=== PATIENT | male | born 1955 | race Caucasian/White ===

== ENCOUNTER → 2018-04-27 | Outpatient (CLI) | payer OTHER ==
[~2018-04-27] MED LIST: ACTOS 45 MG45 M1 PO; ADULT LOW DOSE81 MG PO; ALTACE10 MG PO; ALTACE5 M1 PO; CENTRUM TABLET1 TAB PO; DIURETIC PO; FISH OIL 1,0001 EAC5 PO; GLUCOPHAGE1000 MG PO; JANUVIA25 MG PO; LANTUS100 UNIT/M SUBQ; PAXIL OR; PAXIL20 MG PO; PERCOCET 5-3251 EACH PO; TRICOR OR; TRICOR145 MG PO; VICTOZA0.6 MG/0.1 SUBQ; ZETIA10 MG PO; ZOCOR 10 MG TAB10 MG PO; ZOFRAN ODT4 MG PO; [UNRECOGNIZED DRUG - OTHER] PO
== END ==
LOC: CAT 09:15
DX: Z13.6 Encounter for screening for cardiovascular disorders (principal); I25.10 Atherosclerotic heart disease of native coronary artery without angina pectoris; Z82.49 Family history of ischemic heart disease and other diseases of the circulatory system

== ENCOUNTER → 2018-05-01 | Outpatient (CLI) | payer OTHER ==
--- NOTE | ~2018-05-01 | 2DMMODE ---
[facility] [address] [place] [address] 2 D/M-MODE ECHOCARDIOGRAM Name: DOMOANGLEMIYA JACOBS Room #: REG [facility]#: [id number] Admission: 05/01/18 Attend Phys: Jeff Doll MD Discharge: Date of : 53 Date of Service: 05/01/18 1629 Report #: [id number] THIS REPORT FOR: //name// APPROVED REPORT Study performed: 05/01/2018 13:06:33 EXAM: Comprehensive 2D, Doppler, and color-flow Echocardiogram Patient Location: Out-Patient Status: routine BSA: 2.13 HR: 87 bpm BP: 153/86 mmHg Rhythm: NSR Other Information Study Quality: Good Risk Factors: Cardiac Risk Factors: HTN, Hyperlipidemia, DM Indications Dyspnea 2D Dimensions LVEF(%): 59.53 (>50%) IVSd: 12.58 (7-11mm) LVOT Diam: 20.00 (18-24mm) LVDd: 44.34 mm PWd: 12.58 (7-11mm) Ascending Ao: 30.38 (22-36mm) LVDs: 30.39 (25-40mm) Aortic Root: 27.56 mm LV Single Plane 4CH: 62.30 % LV Single Plane 2CH: 64.54 % Kennedy's LVEF: 63.42 % Biplane EF: 64.8 % Volumes Left Atrial Volume (Systole) Single Plane 4CH: 43.28 mL Single Plane 2CH: 41.18 mL LA ESV Index: 21.00 mL/m2 Aortic Valve AoV Peak Dennis.: 1.54 m/s AO Peak Gr.: 9.47 mmHg LVOT Max P.16 mmHg LVOT Max V: 1.14 m/s [facility] [address] [place] [address] 2 D/M-MODE ECHOCARDIOGRAM Name: LATRICIA OLIVEROS [facility] Room #: [facility]#: [id number] Admission: 05/01/18 Attend Phys: Jeff Doll MD Discharge: Date of : 53 Date of Service: 05/01/18 1629 Report #: [id number] MARVIN Vmax: 2.41 cm2 Mitral Valve E/A Ratio: 1.0 MV Decel. Time: 191.75 ms MV E Max Dennis.: 0.93 m/s MV A Dennis.: 0.93 m/s MV PHT: 55.61 ms IVRT: 64.59 ms TDI E/Lateral E': 11.63 E/Medial E': 13.29 Medial E' Dennis.: 0.07 m/s Lateral E' Dennis.: 0.08 m/s Pulmonary Valve PV Peak Dennis.: 0.99 m/s PV Peak Gr.: 3.94 mmHg Pulmonary Vein P Vein S: 0.58 m/s P Vein A: 0.35 m/s P Vein D: 0.49 m/s P Vein A Dur.: 83.0 msec P Vein S/D Ratio: 1.18 Tricuspid Valve TR Peak Dennis.: 2.51 m/s RAP Estimate: 7.00 mmHg TR Peak Gr.: 25.16 mmHg PA Pressure: 32.00 mmHg Left Ventricle The left ventricle is normal size. There is normal LV segmental wall motion. Mild concentric left ventricular hypertrophy. Left ventricular systolic function is normal. The left ventricular ejection fraction is within the normal range. LVEF is 60-65%. Grade I - abnormal relaxation pattern. Right Ventricle The right ventricle is normal size. The right ventricular systolic function is normal. Atria The left atrium size is normal. The right atrium size is normal. Aortic Valve The aortic valve is normal in structure. No aortic regurgitation is present. There is no [place] [address] 2 D/M-MODE ECHOCARDIOGRAM Name: LATRICIA OLIVEROS Room #: REG [facility]#: [id number] Admission: 05/01/18 Attend Phys: eJff Doll MD Discharge: Date of : 53 Date of Service: 05/01/18 1629 Report #: [id number] Mitral Valve The mitral valve is normal in structure. Trace to mild mitral regurgitation. No evidence of mitral valve stenosis. Tricuspid Valve The tricuspid valve is normal in structure. Trace tricuspid regurgitation. Pulmonary artery pressure is 32 mmHg. Pulmonic Valve The pulmonary valve is normal in structure. There is no pulmonic valvular regurgitation. Great Vessels The aortic root is normal in size. IVC is normal in size and collapses with >50% inspiration. Pericardium There is no pericardial effusion. <Conclusion> Left ventricular systolic function is normal. There is normal LV segmental wall motion. LVEF is 60-65%. Mild diastolic dysfunction. Mild LVH The aortic valve is normal in structure. No aortic regurgitation or stenosis The mitral valve is normal in structure. Trace to mild mitral regurgitation. Trace tricuspid regurgitation. Pulmonary artery pressure is 32 mmHg. There is no pericardial effusion. <ELECTRONICALLY SIGNED> By: Edmundo Man MD, FACC 05/01/18 1629 [id number] 162 Edmundo Man MD, FACC /INF
== END ==
LOC: CV 12:40
DX: R06.00 Dyspnea, unspecified (principal)

== ENCOUNTER → 2018-05-22 | Outpatient (CLI) | payer OTHER ==
--- NOTE | ~2018-05-22 | EXE ---
[facility] [employer] [place] [address] STRESS ECHOCARDIOGRAM Name: DOMOLATRICIA REYNALDO Room #: REG [facility]#: [id number] Admission: 05/22/18 Attend Phys: Jeff Doll MD Discharge: Date of : 53 Date of Service: 05/22/18 1535 Report #: [id number] THIS REPORT FOR: //name// APPROVED REPORT Study performed: 05/22/2018 14:00:19 Exam: Stress Echocardiogram Indication: Dyspnea Patient Location: Echo lab Stress Nurse: Padmaja Brown RN Status: routine Ht: 5 ft 11 in HR: 92 bpm BP: 157/86 mmHg Medical History Medical History: HTN, Diabetes Allergies: No known drug allergies Cardiac Risk Factors: HTN, DM Pretest Chest Pain Characteristics: No chest pain Procedure The patient underwent an Exercise Stress Test using the Seymour Protocol. Blood pressure, heart rate, and EKG were monitored. An Echocardiogram was performed by computer aided design technician in four stages in quad fashion. At peak stress, four selected images were obtained and placed side by side with resting images for comparison. Stress Test Details Stress Test: Exercise stress testing was performed using a Seymour protocol. HR Resting HR: 92 bpm Max Heart Rate (APMHR): 157 bpm Max HR Achieved: 162 bpm Target HR (85% APMHR): 133 bpm % of APMHR: 103 Recovery HR: 112 bpm HR response to stress: Normal HR response to stress BP Resting BP: 157/86 mmHg Max BP: 220/80 mmHg Recovery BP: 174/80 mmHg ECG [facility] [address] [address] STRESS ECHOCARDIOGRAM Name: LATRICIA OLIVEROS Room #: REG [facility]#: [id number] Admission: 05/22/18 Attend Phys: Jeff Doll MD Discharge: Date of : 53 Date of Service: 05/22/18 1535 Report #: [id number] Resting ECG: Sinus Rhythm Stress ECG: Sinus Rhythm, nonspecific ST-T abnormalities ST Change: Non-ischemic Maximum ST Deviation: 0.5 mm Clinical Reason for Termination: Completed protocol Exercise duration: 6 min sec Highest Stage Achieved: Stage 2: 2.5 mph at 12% grade. Exercise capacity: 7.2 METs Pre-Stress Echo The resting Echocardiogram showed normal left ventricular contractility with an estimated Ejection Fraction of about 60-65%. Normal wall motion in all segments on baseline images. Post-Stress Echo The stress Echocardiogram showed normal left ventricular contractility with an estimated Ejection Fraction of about 70%. Normal augmentation of wall motion in all segments on post stress images. Clinical No clinical or ECG evidence for ischemia. Conclusion Clinical Response: Non-ischemic Exercise Capacity: Below Average Stress ECG Response: Non-ischemic Stress Echo Images: Non-ischemic The left ventricle is normal in size and wall thickness in both the rest and stress images. Other Information Study Quality: Good <Conclusion> The left ventricle is normal in size and wall thickness in both the rest and stress images. <ELECTRONICALLY SIGNED> By: Jeff Doll MD 05/22/18 1535 1535 1535 Jeff Doll MD /INF
== END ==
LOC: CV 12:12
DX: R06.00 Dyspnea, unspecified (principal)

== ENCOUNTER → 2019-12-13 | Outpatient (CLI) | payer OTHER | LOC: SJCVCIMAG 08:44 | DX: I11.9 Hypertensive heart disease without heart failure (principal); E11.9 Type 2 diabetes mellitus without complications; Z79.4 Long term (current) use of insulin; Z87.891 Personal history of nicotine dependence ==

== ENCOUNTER → 2020-10-16 | Outpatient (CLI) | payer OTHER, MEDICARE | LOC: SJCVC 11:05 | PROVIDERS: ATTEND Internal Medicine | DX: I25.10 Atherosclerotic heart disease of native coronary artery without angina pectoris (principal); I10 Essential (primary) hypertension; E78.00 Pure hypercholesterolemia, unspecified; E11.9 Type 2 diabetes mellitus without complications ==